=== PATIENT | male | born 1990 | race Caucasian/White ===

== ENCOUNTER 2018-08-10 08:11 | Emergency (ER) | payer MEDICAID ==
[~2018-08-10] VITALS: Ht 165.1 cm; Wt 70.3 kg
[2018-08-10 08:18] VITALS: BP_SYST 124
--- NOTE | 2018-08-10 08:18 | NUR ---
PATIENT PLACED IN EXAM ROOM #6. REPORT GIVEN AND CARE TRANSFERRED TO NAYLA CORREA. REPORT GIVEN TO DR. BLACK.
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
--- NOTE | 2018-08-10 08:26 | NUR ---
ER at bedside examining patient.
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
--- NOTE | 2018-08-10 08:40 | NUR ---
patient walked to RD in stable condition.
--- NOTE | 2018-08-10 08:48 | NUR ---
patient returned to bed from RD in stable condition.
[2018-08-10 09:14] VITALS: BP_SYST 124
--- NOTE | 2018-08-10 09:14 | NUR ---
Patient given written and verbal discharge instructions and verbalizes understanding. ER MD discussed with patient the results and treatment provided. Patient in stable condition. ID arm band removed. Rx of Naprosyn given. Patient educated on pain management and to follow up with PMD. Pain Scale 3/10. Opportunity for questions provided and answered. Medication side effect fact sheet provided.
== END 2018-08-10 09:14 | disposition home or self-care (01) ==
LOC: SED 08:11
DX: S20.211A Contusion of right front wall of thorax, initial encounter (principal); S00.81XA Abrasion of other part of head, initial encounter; Y04.0XXA Assault by unarmed brawl or fight, initial encounter; Y93.89 Activity, other specified; Y92.89 Other specified places as the place of occurrence of the external cause; Y99.8 Other external cause status
CPT/HCPCS: 71100; 99283

== ENCOUNTER 2019-02-27 15:07 | Emergency (ER) | payer MEDICAID ==
[~2019-02-27] VITALS: Ht 167.6 cm; Wt 88.5 kg
[2019-02-27 15:17] VITALS: BP_SYST 144
--- NOTE | 2019-02-27 17:25 | NUR ---
Called for pt, unable to locate.
--- NOTE | 2019-02-27 17:40 | NUR ---
Called for pt, unable to locate.
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
== END 2019-02-27 17:51 | disposition left against medical advice (07) ==
LOC: SED 15:07
DX: R07.81 Pleurodynia (principal); Z53.21 Procedure and treatment not carried out due to patient leaving prior to being seen by health care provider
CPT/HCPCS: 71046-TC; 71100

== ENCOUNTER 2019-04-14 08:52 | Emergency (ER) | payer MEDICAID ==
[~2019-04-14] VITALS: Ht 167.6 cm; Wt 86.2 kg
[2019-04-14 09:05] VITALS: BP_SYST 119
--- NOTE | 2019-04-14 09:06 | NUR ---
flu swab collected and sent
--- NOTE | 2019-04-14 09:15 | NUR ---
Patient presented to ER with flu symptoms. Patient A&Ox4, skin pink and warm, ambulatory to ER, pain 01/10, denies N/V/D. Patient states he has right ear pain, throat & body aches x3 days.
[2019-04-14] MEDS ORDERED: IBUPROFEN 600 MG TABLET PO ONE (10:00)
[2019-04-14] MEDS ORDERED: AMOXICILLIN 500 MG CAPSULE PO ONE (10:00)
--- NOTE | 2019-04-14 10:00 | NUR ---
ANGEL Odom at bedside examining patient.
[2019-04-14 11:05] VITALS: BP_SYST 119
--- NOTE | 2019-04-14 11:05 | NUR ---
Patient given written and verbal discharge instructions and verbalizes understanding. ER MD discussed with patient the results and treatment provided. Patient in stable condition. ID arm band removed. Rx of tamiflu, amoxicillin, ibuprofen given. Patient educated on pain management and to follow up with PMD. Pain Scale 4/10 tolerable for patient. Opportunity for questions provided and answered. Medication side effect fact sheet provided.
== END 2019-04-14 11:05 | disposition home or self-care (01) ==
LOC: SED 08:52
DX: J10.1 Influenza due to other identified influenza virus with other respiratory manifestations (principal); H66.91 Otitis media, unspecified, right ear; R51 Headache; F12.90 Cannabis use, unspecified, uncomplicated; F17.200 Nicotine dependence, unspecified, uncomplicated
CPT/HCPCS: 36415; 86710; 99283